=== PATIENT | female | born 1960 | race Caucasian/White ===

== ENCOUNTER → 2016-06-26 | Outpatient (CLI) | payer OTHER | END | disposition short-term general hospital (02) | LOC: CLPAIN 11:51 | DX: M54.9 Dorsalgia, unspecified (principal); G89.29 Other chronic pain ==

== ENCOUNTER → 2016-07-31 | Outpatient (CLI) | payer OTHER | END | disposition short-term general hospital (02) | LOC: CLPAIN 00:33 | DX: G62.9 Polyneuropathy, unspecified (principal); G89.4 Chronic pain syndrome; M25.561 Pain in right knee; M25.562 Pain in left knee; M79.641 Pain in right hand; M79.642 Pain in left hand; M79.671 Pain in right foot; M79.672 Pain in left foot ==

== ENCOUNTER → 2016-08-28 | Outpatient (CLI) | payer OTHER | END | disposition short-term general hospital (02) | LOC: CLPAIN 10:15 | DX: M10.9 Gout, unspecified (principal); M54.12 Radiculopathy, cervical region; G62.9 Polyneuropathy, unspecified; G57.93 Unspecified mononeuropathy of bilateral lower limbs; G89.4 Chronic pain syndrome ==

== ENCOUNTER → 2016-12-14 | Outpatient (CLI) | payer OTHER | END | disposition short-term general hospital (02) | LOC: CLNEUR 09:49 | DX: Z47.89 Encounter for other orthopedic aftercare (principal); Z95.1 Presence of aortocoronary bypass graft ==